=== PATIENT | female | born 1985 | race Caucasian/White ===

== ENCOUNTER 2016-08-26 13:04 | Emergency (ER) | payer BC | END 2016-08-26 14:20 | disposition home or self-care (01) | DX: N30.00 Acute cystitis without hematuria (principal); R20.2 Paresthesia of skin; F17.200 Nicotine dependence, unspecified, uncomplicated ==

== ENCOUNTER 2018-08-31 00:04 | Outpatient (CLI) | payer OTHER ==
--- NOTE | 2018-08-31 01:19 | Ultrasound Report ---
Reason: TEST POSITIVE Procedure Date: 08/31/2018 Accession Number: [id number] / [id number] Procedure: US - OB First Trimester CPT Code: FULL RESULT: EXAM: FIRST TRIMESTER OBSTETRIC ULTRASOUND (Less than 11 weeks) EXAM DATE: 08/31/2018 12:12 AM. CLINICAL HISTORY: TEST POSITIVE. LMP: 06/18/2018. COMPARISONS: None. TECHNIQUE: Transabdominal and transvaginal ultrasound examination with static image documentation. CLINICAL DATES: EGA 10 weeks 4 days with SANDER 03/25/2019 based on LMP. ASSESSMENT: Gestational Sac: Single intrauterine. Embryo: CRL (crown-rump length) 19 mm = 8 weeks 2 days. Cardiac activity: None present. Yolk sac: 4 mm. Amniotic fluid: Not accurately assessed at this gestational age. Early placenta: Not visible at this gestational age. Other: No perigestational fluid collection demonstrated. MATERNAL STRUCTURES: Uterus: Anteverted. Posterior subserosal leiomyoma measuring 1.5 cm.. Cervix: Closed. Right Ovary/Adnexa: The ovary measures 3.5 x 2.6 x 2.6 cm, volume 12 cc. 1.7 cm corpus luteum.. Left Ovary/Adnexa: The ovary measures 3.7 x 3.1 x 1.3 cm, volume 8 cc. Unremarkable. Free Fluid: None. Other: None. IMPRESSION: 1. Intrauterine gestational sac, with pole and yolk sac present, but no heart motion, compatible with intrauterine demise. RADIA The above critical result findings were discussed with Dr. Barnett by Dr. Wayne Peoples at 01:17 AM on 08/31/2018.
== END 2018-08-31 00:05 | disposition home or self-care (01) ==
LOC: DI 00:04
PROVIDERS: ATTEND Registered Nurse
DX: Z32.01 Encounter for pregnancy test, result positive (principal)
CPT/HCPCS: 76801; 76817

== ENCOUNTER 2019-08-07 14:30 | Outpatient (CLI) | payer BC ==
--- NOTE | 2019-08-07 19:03 | Ultrasound Report ---
Reason: POSITIVE TEST Procedure Date: 08/07/2019 Accession Number: [id number] / [id number] Procedure: US - OB First Trimester CPT Code: Final Report FULL RESULT: EXAM: FIRST TRIMESTER OBSTETRIC ULTRASOUND (Less than 11 weeks) EXAM DATE: 08/07/2019 03:32 PM. CLINICAL HISTORY: test positive. History of spontaneous x 3. COMPARISONS: OB FIRST TRIMESTER 08/31/2018 12:12 AM. TECHNIQUE: Transabdominal and transvaginal ultrasound examination with static image documentation. CLINICAL DATES: EGA 8 weeks 3 days with SANDER 03/15/2020 based on LMP, 06/09/2019. ASSESSMENT: Gestational Sac: Single intrauterine. Mean gestational sac diameter: 35 mm = 8 weeks 5 days, SANDER 03/13/2020. Embryo: CRL (crown-rump length) 20 mm = EGA 8 weeks 4 days, SANDER 03/14/2020. Cardiac activity: 167 beats per minute. Yolk sac: 4 mm. Amniotic fluid: Not accurately assessed at this gestational age. Early placenta: Not visible at this gestational age. Other: Inferior adrián-gestational bleed measuring 0.4 x 1.2 x 2.7 cm. MATERNAL STRUCTURES: Uterus: Anteverted. Posterior uterine subserosal fibroid measuring 2 x 1.4 x 1.8 cm. Cervix: Closed. Right Ovary/Adnexa: The ovary measures 4.4 x 2.7 x 3.7 cm, volume 23.4 cc. Unremarkable. Corpus luteum seen in the right ovary. Left Ovary/Adnexa: The ovary measures 3.1 x 1.2 x 1.7 cm, volume 3.4 cc. Unremarkable. Free Fluid: None. IMPRESSION: 1. Single viable intrauterine . Embryo: CRL (crown-rump length) 20 mm = EGA 8 weeks 4 days, SANDER 03/14/2020, concordant with dates. CLINICAL DATES: EGA 8 weeks 3 days with SANDER 03/15/2020 based on LMP, 06/09/2019. 3. Small adrián-gestational bleed. RADIA
== END 2019-08-07 14:31 | disposition home or self-care (01) ==
LOC: DI 14:30
PROVIDERS: ATTEND Obstetrics & Gynecology
DX: Z32.01 Encounter for pregnancy test, result positive (principal); O20.9 Hemorrhage in early pregnancy, unspecified; Z3A.08 8 weeks gestation of pregnancy
CPT/HCPCS: 76801; 76817

== ENCOUNTER 2019-08-19 07:00 | Outpatient (CLI) | payer BC ==
[2019-08-19 12:03] LABS: MUDS CUTOFF CONCENTRATIONS CUTOFF CONC BELOW:
[2019-08-19 12:12] LABS: BILIRUBIN,URINE NEGATIVE (NEGATIVE); GLUCOSE, URINE (UA) NEGATIVE (NEGATIVE); KETONES,URINE (UA) NEGATIVE (NEGATIVE); LEUKOCYTE ESTERASE, URINE TRACE (NEGATIVE); NITRITE,URINE NEGATIVE (NEGATIVE); OCCULT BLOOD,URINE TRACE-LYSE (NEGATIVE); PROTEIN,URINE NEGATIVE (NEGATIVE); UROBILINOGEN,URINE 0.2 (NORMAL) E.U./dL (NORMAL)
[2019-08-19 12:25] LABS: AMPHETAMINE SCREEN,URINE NEGATIVE (NEGATIVE); BENZODIAZEPINES SCREEN, URINE NEGATIVE (NEGATIVE); COCAINE SCREEN URINE NEGATIVE (NEGATIVE); METHADONE SCREEN, URINE NEGATIVE (NEGATIVE); METHAMPHETAMINES SCREEN, URINE NEGATIVE (NEGATIVE); OPIATE SCREEN, URINE NEGATIVE (NEGATIVE); OXYCODONE SCREEN, URINE NEGATIVE (NEGATIVE); PROPOXYPHENE SCREEN, URINE NEGATIVE (NEGATIVE); TRICYCLIC ANTIDEPRESSANT,URINE NEGATIVE (NEGATIVE)
[2019-08-19 12:26] LABS: CLARITY,URINE CLEAR (CLEAR)
[2019-08-19 12:33] LABS: BACTERIA,URINE Rare /HPF (None Seen); RBC,URINE 0-5 /HPF (0-5); SQUAMOUS EPITHELIAL CELL,UR RARE Squamous (<= Few)
== END 2019-08-19 23:59 | disposition home or self-care (01) ==
LOC: LAB.R 07:00
PROVIDERS: ATTEND Obstetrics & Gynecology
DX: Z34.90 Encounter for supervision of normal pregnancy, unspecified, unspecified trimester (principal)
CPT/HCPCS: 80306; 81001; 87086

== ENCOUNTER 2019-08-25 12:19 | Outpatient (CLI) | payer BC | END 2019-08-25 12:20 | disposition home or self-care (01) | LOC: LAB 12:19 | PROVIDERS: ATTEND Obstetrics & Gynecology | DX: Z31.5 Encounter for procreative genetic counseling (principal); O09.291 Supervision of pregnancy with other poor reproductive or obstetric history, first trimester; Z3A.00 Weeks of gestation of pregnancy not specified | CPT/HCPCS: 36415 ==

== ENCOUNTER 2019-09-09 08:00 | Outpatient (CLI) | payer BC ==
[2019-09-09 21:09] LABS: CANDIDA GROUP DNA NEGATIVE (NEGATIVE); CANDIDA KRUSEI DNA NEGATIVE (NEGATIVE); TRICHOMONAS VAGINALIS DNA NEGATIVE (NEGATIVE)
== END 2019-09-09 23:59 | disposition home or self-care (01) ==
LOC: LAB.R 08:00
PROVIDERS: ATTEND Advanced Practice Midwife
DX: O23.41 Unspecified infection of urinary tract in pregnancy, first trimester (principal); Z3A.00 Weeks of gestation of pregnancy not specified
CPT/HCPCS: 87086; 87661; 87801

== ENCOUNTER 2019-10-08 08:00 | Outpatient (CLI) | payer BC ==
[2019-10-08 18:12] LABS: CREATININE,URINE 43.1 mg/dL
[2019-10-08 18:34] LABS: CREATININE 24 HOUR,URINE 216 mg/24h (600-1800); TOTAL PROTEIN,URINE TIMED < 6 mg/dL; TOTAL VOLUME 24HRS,URINE 500 mL
== END 2019-10-08 23:59 | disposition home or self-care (01) ==
LOC: LAB.WCP 08:00
PROVIDERS: ATTEND Obstetrics & Gynecology
DX: O16.9 Unspecified maternal hypertension, unspecified trimester (principal)
CPT/HCPCS: 82570; 84156

== ENCOUNTER 2019-11-03 12:14 | Outpatient (CLI) | payer BC ==
--- NOTE | 2019-11-03 14:38 | Ultrasound Report ---
PROCEDURE: OB Detailed Eval INDICATIONS: SUPERVISION OF NORMAL OUTSIDE/PRIOR DATING DATA: Last menstrual period (LMP): 06/09/2019. LMP-based estimated date of delivery (SANDER): 03/15/2020. First dating scan (date and location): 08/07/2019. Estimated date of delivery (SANDER) from first dating scan: 03/15/2020. TECHNIQUE: Real-time scanning was performed of the fetus, with image documentation and biometric measurements. Endovaginal scanning: Not needed COMPARISON: None. FINDINGS: General: A single living intrauterine gestation is present. Presentation: Variable Placenta: Placental position is posterior fundal, without previa. Amniotic fluid index: 16.6 cm, normal for gestational age. heart rate: 147 beats per minute. Maternal cervical canal: 4.6 cm long; normal length is 2.5 cm or more. biometrics: Biparietal diameter: 5.2 cm, 21 weeks 4 days Head circumference: 19.0 cm, 21 weeks 3 days Abdominal circumference: 17.2 cm, 22 weeks 1 day Femur length: 3.6 cm, 21 weeks 2 days Estimated gestational age from initial scan: 21 weeks 0 days. Composite gestational age from present scan: 21 weeks 4 days Estimated weight and percentile: 4 47 g, 83rd percentile Measurement variability in biometric dating: +/- 10 days from 12-20 weeks gestation, +/- 2 weeks from 20-30 weeks gestation, +/- 3 weeks at 30 weeks gestation or later. Anatomic survey: Neuro: Ventricles are normal at less than 10 mm. Cisterna magna is normal at 3-11 mm. Cerebellum i s normal in size and morphology. Nuchal skin fold: Normal at less than 6 mm between 14 and 20 weeks gestational age. Face: Nose and lips, facial profile are normal. Spine: No evidence for spina bifida. Heart: 4-chambered heart is present, with normal ventricular outflow tracts. Diaphragm: Diaphragm is intact. Stomach: Left-sided stomach is present. Kidneys: No hydronephrosis. Normal is less than 5 mm in 2nd trimester, less than 7 mm in 3rd trimester. Cord: 3 vessel cord has orthotopic insertion. Bladder: Normal in size. Extremities: All 4 extremities are visualized. IMPRESSION: No anomaly seen, appropriate interval growth, delivery date is projected to be centered on 03/15. Reviewed by: Lit Weiss MD on 11/03/2019 2:37 PM PDT Approved by: Lit Weiss MD on 11/03/2019 2:37 PM PDT Station ID: [id number]
== END 2019-11-03 12:15 | disposition home or self-care (01) ==
LOC: DI 12:14
PROVIDERS: ATTEND Obstetrics & Gynecology
DX: Z34.90 Encounter for supervision of normal pregnancy, unspecified, unspecified trimester (principal)
CPT/HCPCS: 76811

== ENCOUNTER 2020-01-18 12:50 | Outpatient (CLI) | payer BC | END 2020-01-18 12:51 | disposition home or self-care (01) | LOC: LAB 12:50 | PROVIDERS: ATTEND Advanced Practice Midwife | DX: Z34.90 Encounter for supervision of normal pregnancy, unspecified, unspecified trimester (principal) | CPT/HCPCS: 36415; 82950 ==

== ENCOUNTER 2020-02-17 08:00 | Outpatient (CLI) | payer BC | END 2020-02-17 23:59 | disposition home or self-care (01) | LOC: LAB.R 08:00 | PROVIDERS: ATTEND Advanced Practice Midwife | DX: Z36.85 Encounter for antenatal screening for Streptococcus B (principal); Z34.90 Encounter for supervision of normal pregnancy, unspecified, unspecified trimester | CPT/HCPCS: 87797 ==

== ENCOUNTER 2020-02-23 14:56 | Outpatient (CLI) | payer BC ==
[2020-02-23] MEDS ORDERED: SODIUM CHLORIDE FLUSH 0.9% 10 ML SYRINGE IVP PRN (15:08)
[2020-02-23] MEDS ORDERED: TERBUTALINE 1 MG/ML VIAL SUBQ ONE (15:13)
[2020-02-23] MEDS ORDERED: ONDANSETRON 4 MG/2 ML VIAL IVP ONE (15:13)
[2020-02-23] MEDS ORDERED: fentaNYL 100 MCG/2 ML VIAL IVP ONE (15:13)
[2020-02-23] MEDS ORDERED: MINERAL OIL LIGHT 10 ML MC ONE (16:01)
[2020-02-23 16:18] VITALS: BP 130/85
--- NOTE | 2020-02-23 16:24 | PROVIDER PROGRESS NOTE ---
- HPI Chief Complaint: Other (Patient is a 34 yo at 37+0 wga with fetus in breech presentation here for external cephalic version. has been uncomplicated. Found to be in breech presentation at prior OB visit. Has had one . Desires attempt at ECV. No CTX/VB/LOF. Posterior placenta confirmed on prior US. Rh pos) Current : Vital Signs Temperature 98.8 F 02/23/20 16:17 Heart Rate 94 02/23/20 16:17 Respiratory Rate 18 02/23/20 16:17 Blood Pressure 130/85 H 02/23/20 16:17 Temperature 98.8 F 02/23/20 16:17 Heart Rate 94 02/23/20 16:17 Respiratory Rate 18 02/23/20 16:17 Blood Pressure 130/85 H 02/23/20 16:17 O2 Saturation - Exam GEN: NAD HEENT: NCAT CV: RRR RESP: nl effort ABD: ABD: gravid, soft and nontender EXT: WWP PSYCH: bright and reactive affect NEURO: A&O Bedside us shows breech position with head in RUQ PATRICIA 12.9 Breech presentation EFM 125 mod jack 15x15 accels no decel TOCO; Quiet Cat I tracing - Procedures OB Procedure Performed: External Cephalic Version NST Procedure: EFM 125 mod jack 15x15 accels no decels TOCO; Quiet Cat I tracing Service Date of procedure: 02/23/20 Procedure Details: R/B/A were reviewed. Written informed consent was obtained. Bedside us was performed and fetus was confirmed to be in breech presentation with head on materal right in the upper quadrant. PATRICIA 12.9. Cat I tracing. Patient received terbutaline 25 mcg SC x1 and fentanyl 50 mcg IV x1. Mineral oil was applied to the abdomen. breech was gently lifted out of the pelvis manually. Fetus was gently rotated head forward in the counterclockwise direction. Moved eaasily to a vertex presentation. heart tones reassuring throughout procedure. Bedside us confirmed vertex presentation. External monitoring continued for one hour post procedure and remained category I. Procedure was well tolerated and without complication. - Plan Plan: Patient was provided with an abdominal binder to stabilize position FU with routine OB care. Anticipate
== END 2020-02-23 18:00 | disposition home or self-care (01) ==
LOC: WFO 14:56 → FBP 14:58 → WFO 18:00
PROVIDERS: ATTEND Obstetrics & Gynecology
DX: O32.1XX0 Maternal care for breech presentation, not applicable or unspecified (principal); Z3A.37 37 weeks gestation of pregnancy
CPT/HCPCS: 59412; 96372; 96374; 96375

== ENCOUNTER 2020-03-04 12:18 | Outpatient (CLI) | payer BC ==
[2020-03-04 12:53] VITALS: BP 124/65
[2020-03-04] MEDS ORDERED: ONDANSETRON ODT 4 MG TABLET TL PRN (13:05)
[2020-03-04] MEDS ORDERED: ACETAMINOPHEN 500 MG TABLET PO PRN (13:06)
[2020-03-04] MEDS ORDERED: oxyCODONE 5 MG TABLET PO PRN (13:07)
[2020-03-04 13:27] LABS: BILIRUBIN,URINE NEGATIVE (NEGATIVE); GLUCOSE, URINE (UA) NEGATIVE (NEGATIVE); KETONES,URINE (UA) NEGATIVE (NEGATIVE); LEUKOCYTE ESTERASE, URINE TRACE (NEGATIVE); NITRITE,URINE NEGATIVE (NEGATIVE); OCCULT BLOOD,URINE NEGATIVE (NEGATIVE); PROTEIN,URINE NEGATIVE (NEGATIVE); UROBILINOGEN,URINE 0.2 (NORMAL) E.U./dL (NORMAL)
[2020-03-04 13:28] LABS: BASOPHILS % (AUTO) 0.2 %; EOSINOPHILS % (AUTO) 0.2 %; HGB - HEMOGLOBIN 10.7 g/dL (12.0-16.0); LYMPHOCYTES # (AUTO) 1.4 10^3/uL (1.5-3.5); LYMPHOCYTES % (AUTO) 16.6 %; MEAN CORPUSCULAR HEMOGLOBIN 27.9 pg (27.0-31.0); MEAN CORPUSCULAR HGB CONC 32.3 g/dL (32.0-36.0); MEAN CORPUSCULAR VOLUME 86.2 fL (81.0-99.0); MEAN PLATELET VOLUME 10.8 fL (7.9-10.8); MONOCYTES # (AUTO) 0.4 10^3/uL (0.0-1.0); MONOCYTES % (AUTO) 4.9 %; NEUTROPHILS # (AUTO) 6.6 10^3/uL (1.5-6.6); NEUTROPHILS % (AUTO) 77.4 %; PLT - PLATELET COUNT 150 10^3/uL (130-450); RED BLOOD COUNT 3.84 10^6/uL (4.20-5.40); RED CELL DISTRIBUTION WIDTH 13.7 % (12.0-15.0); WHITE BLOOD COUNT 8.5 x10^3/uL (4.8-10.8)
[2020-03-04 13:28] LABS: CLARITY,URINE CLEAR (CLEAR)
[2020-03-04 13:40] LABS: CREATININE,URINE 15.3 mg/dL
[2020-03-04 13:43] LABS: CREATININE 0.5 mg/dL (0.4-1.0)
[2020-03-04 13:43] LABS: TOTAL PROTEIN,URINE TIMED < 6 mg/dL
[2020-03-04 13:46] LABS: URIC ACID 5.1 mg/dL (2.6-7.2)
[2020-03-04 13:48] LABS: RBC,URINE None Seen /HPF (0-5)
[2020-03-04 13:49] LABS: BACTERIA,URINE Rare /HPF (None Seen); SQUAMOUS EPITHELIAL CELL,UR FEW Squamous (<= Few)
--- NOTE | 2020-03-04 14:29 | PROVIDER PROGRESS NOTE ---
- HPI Chief Complaint: Headache Current : Vital Signs Temperature 36.6 C 03/04/20 12:45 Heart Rate 82 03/04/20 12:45 Respiratory Rate 18 03/04/20 12:45 Blood Pressure 140/93 H 03/04/20 12:45 Temperature 36.6 C 03/04/20 12:45 Heart Rate 82 03/04/20 12:45 Respiratory Rate 18 03/04/20 12:45 Blood Pressure 124/65 03/04/20 12:53 O2 Saturation - Procedures OB Procedure Performed: NST NST Procedure: NST Procedure Start Time 15:10 Stop Time 15:55 Service Date of procedure: 03/04/20 - Plan Plan: Maria Elena is a 34yo @ 38.3wks gestation who presents today with her partner after phoning through the answering service with complaints of severe headache which she woke up with this morning. She states she took an Excedrin migraine, drank a cup of coffee and increased her fluid intake which are all things she does when she has a headache outside of , but these things did not even touch her headache this time. In addition she reports sensitivity to light and sound and nausea without vomiting. She states she has slightly blurred vision but this is also not a new symptom for her and reports overall poor vision. She denies vaginal bleeding or leakage of fluid. She reports intermittent low back pain but denies contractions. She states the back pain has been pretty consistent for the last several weeks and is not new. She reports +FM. She denies RUQ or epigastric pain. She denies edema. O: BP initially 140/93 with repeat 124/65. DTRs WNL - no clonus. HR 82; RR 18; T 36.6 Abdomen gravid, soft, nontender PIH labs: Hgb 10.7; Hct 33.1; PLT 150; AST 18; LDH 103; Uric acid 5.1 Urine protein - negative; Protein/creatinine ratio - not reportable (urine creatinine 15.3; urine total protein <6) FHR baseline 130, moderate variability, + accels, no decels No contractions appreciated via tocometry A: 34yo @ 38.3wks gestation by LMP c/w 8.3wk U/S Headache in PIH labs - WNL FHR Category I P: Administered 5mg Oxycodone and 1000mg Tylenol PO Zofran 4mg PO - nausea improved Ice pack to back of neck Pt advised to rest x 1 hour. Following 1 hour of rest pt headache and nausea both improved significantly. Reviewed and advised against excedrin migraine use. Advised Tylenol 1000mg PO q 8 hrs PRN headache. Advised increased fluid intake and rest. Pt released home with precautions. Pt verbalized understanding and agrees to above plan. She denies further questions or concerns at this time. NST performed 03/04/2020 NST read 03/04/2020 NST reactive; FHR baseline 130s, moderate variability, + accels, no decels FINAL DIAGNOSIS: Headache
== END 2020-03-04 15:30 | disposition home or self-care (01) ==
LOC: WFO 12:18 → FBP 12:19 → WFO 15:30
PROVIDERS: ATTEND Nurse Practitioner Obstetrics & Gynecology
DX: O99.891 Other specified diseases and conditions complicating pregnancy (principal); R51.9 Headache, unspecified; Z3A.38 38 weeks gestation of pregnancy
CPT/HCPCS: 36415; 81001; 82565; 82570; 83615; 84156; 84450; 84550; 85025; 87086; 99213; A9270; Q0162

== ENCOUNTER 2020-03-08 20:54 | Outpatient (CLI) | payer BC ==
[2020-03-08] MEDS ORDERED: MORPHINE 10 MG/ML VIAL IM STA (21:39)
[2020-03-08] MEDS ORDERED: PROMETHAZINE 25 MG/1 ML VIAL IM STA (21:40)
[2020-03-08 22:22] LABS: RUPTURE OF MEMBRANES PLUS NEGATIVE (NEGATIVE)
[2020-03-09 00:13] VITALS: BP 138/82
--- NOTE | 2020-04-17 07:12 | PROVIDER PROGRESS NOTE ---
- HPI Chief Complaint: Labor Check Current : Current EDU 03/15/20 Gestation 39 Weeks and 0 Days 5 Para 1 Vital Signs Temperature 37.3 C 03/08/20 21:12 Heart Rate 75 03/08/20 21:12 Respiratory Rate 16 03/08/20 21:12 Blood Pressure 138/82 H 03/08/20 21:12 O2 Saturation 98 03/08/20 21:12 Temperature 37.3 C 03/08/20 21:12 Heart Rate 75 03/08/20 21:12 Respiratory Rate 16 03/08/20 21:12 Blood Pressure 138/82 H 03/08/20 21:12 O2 Saturation 98 03/08/20 21:12 - Procedures NST Procedure: NST Procedure Start Time 12:30 Stop Time 13:30 - Plan Plan: S: Maria Elena presents for a term labor check O: FHTs per NST at 39.0wks gestation A: at 39.0wks not in labor, membranes intact FHTs reassuring P: Send home with labor precautions Continue routine care
== END 2020-03-08 22:52 | disposition home or self-care (01) ==
LOC: WFO 20:54 → FBP 20:56 → WFO 22:52
PROVIDERS: ATTEND Advanced Practice Midwife
DX: O47.1 False labor at or after 37 completed weeks of gestation (principal); Z3A.39 39 weeks gestation of pregnancy
CPT/HCPCS: 84112; 96372; 99213

== ENCOUNTER 2020-03-17 17:04 | Inpatient (IN) | payer BC ==
[2020-03-17] MEDS ORDERED: OXYTOCIN 10 UNIT/ML VIAL IM PRN (18:04)
[2020-03-17] MEDS ORDERED: ACETAMINOPHEN 325 MG TABLET PO PRN (18:04)
[2020-03-17] MEDS ORDERED: SODIUM CHLORIDE FLUSH 0.9% 10 ML SYRINGE IVP PRN (18:04)
[2020-03-17] MEDS ORDERED: CARBOPROST TROMETHAMINE 250 MCG/ML AMP IM PRN (18:04)
[2020-03-17] MEDS ORDERED: miSOPROStoL 200 MCG TABLET BC PRN (18:04)
[2020-03-17] MEDS ORDERED: TRANEXAMIC ACID 1,000 MG in SODIUM CHLORIDE 0.9% 100ML 100 ML IV PRN (18:04)
[2020-03-17] MEDS ORDERED: OXYTOCIN/SODIUM CHLORIDE 500 ML IV PRN (18:04)
[2020-03-17] MEDS ORDERED: LIDOCAINE-MPF 1% 30 ML VIAL ID PRN (18:04)
[2020-03-17] MEDS ORDERED: METHYLERGONOVINE 0.2 MG/ML VIAL IM PRN (18:04)
[2020-03-17] MEDS ORDERED: ZOLPIDEM 5 MG TABLET PO PRN (18:06)
[2020-03-17] MEDS: miSOPROStoL 100 MCG TABLET BC SCH ×2 (18:45→22:48)
[2020-03-17 18:53] LABS: BASOPHILS % (AUTO) 0.2 %; EOSINOPHILS % (AUTO) 0.1 %; HGB - HEMOGLOBIN 11.8 g/dL (12.0-16.0); LYMPHOCYTES # (AUTO) 1.7 10^3/uL (1.5-3.5); LYMPHOCYTES % (AUTO) 16.4 %; MEAN CORPUSCULAR HEMOGLOBIN 27.3 pg (27.0-31.0); MEAN CORPUSCULAR HGB CONC 32.5 g/dL (32.0-36.0); MEAN CORPUSCULAR VOLUME 83.8 fL (81.0-99.0); MEAN PLATELET VOLUME 11.8 fL (7.9-10.8); MONOCYTES # (AUTO) 0.5 10^3/uL (0.0-1.0); MONOCYTES % (AUTO) 4.9 %; NEUTROPHILS % (AUTO) 77.8 %; PLT - PLATELET COUNT 148 10^3/uL (130-450); RED BLOOD COUNT 4.33 10^6/uL (4.20-5.40); WHITE BLOOD COUNT 10.2 x10^3/uL (4.8-10.8)
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
[2020-03-18] MEDS ORDERED: MORPHINE 10 MG/ML VIAL IM STA (00:11)
[2020-03-18] MEDS: SODIUM CHLORIDE FLUSH 0.9% 10 ML SYRINGE IVP SCH (00:28)
[2020-03-18] MEDS: ONDANSETRON 4 MG/2 ML VIAL IVP PRN ×2 (00:28→07:26)
--- NOTE | 2020-03-18 07:58 | PROVIDER PROGRESS NOTE ---
Labor Progress Note - Uterine Monitoring Uterine Monitoring Mode: positive: External toco Contraction Frequency (min/apart): 5-8 Contraction Intensity: positive: Mild Uterine Resting Tone: positive: Soft - Monitoring Monitor Mode: positive: External ultrasound Heart Rate Baseline: 120 Heart Rate Variability: positive: Moderate (6-25 bmp) Accelerations: positive: Absent Decelerations: positive: None Strip Review: positive: Category I - Vaginal Exam Dilation (in cm): 2 Effacement (%): 75 Station: -2 Cervical Position: Anterior - Labor Progress Note Labor Progress Note/Additional Text: S: Pt reports she was able to sleep after receiving morphine last night. When she woke up this morning she was experiencing increased pain with contractions and states the jacuzzi did help relieve some of her discomfort. She is feeling the contractions continue to increase in intensity and is feeling like she would desire an epidural relatively soon. Feeling much of the contractions in her lower back. In addition she is experiencing nausea without vomiting and requests medication for management. Reports losing her mucus plug early this morning. Mood is good. supportive at the bedside. She denies SAAB, visual disturbances, RUQ or epigastric pain. O: FHR baseline 120s, moderate variability, no accels at present, no decels SVE 2/75/-2, anterior, medium consistency. Vertex. Intact membranes. Burrows score -7: favorable BP 143/86, afebrile Pre-induction cervical ripening with misoprostol s/p 2 doses of 50mcg BC misoprosol A: 34yo @ 40.3wks gestation by LMP c/w 8wk U/S FHR Category I GBS neg P: Continuous monitoring Initiate pitocin for induction of labor with titration per protocol Encouraged hands and knees position x 30 minutes min to promote optimal positioning. Epidural per maternal request Reviewed plan of care with pt, partner, and labor RN at the bedside who verbalized understanding and agree with above plan. They deny further questions or concerns at this time.
[2020-03-18] MEDS ORDERED: OXYTOCIN/SODIUM CHLORIDE 500 ML IV SCH (08:00)
[2020-03-18] MEDS: LACTATED RINGERS 1,000 ML IV SCH ×2 (08:35→18:35)
[2020-03-18] MEDS: METOCLOPRAMIDE 10 MG/2 ML VIAL IVP PRN ×2 (09:20→18:57)
[2020-03-18] MEDS ORDERED: ROPIVACAINE 0.2% 200 MG/100 ML BAG EP ONE (09:47)
--- NOTE | 2020-03-18 10:47 | PROVIDER PROGRESS NOTE ---
Labor Progress Note - Uterine Monitoring Uterine Monitoring Mode: positive: External toco Contraction Frequency (min/apart): 3-4 Contraction Intensity: positive: Moderate Uterine Resting Tone: positive: Soft - Monitoring Monitor Mode: positive: External ultrasound Heart Rate Baseline: 130 Heart Rate Variability: positive: Moderate (6-25 bmp) Accelerations: positive: Present, 15x15 Decelerations: positive: None Strip Review: positive: Category I - Labor Progress Note Labor Progress Note/Additional Text: S: Pt comfortable with epidural. Currently sleeping in bed. She denies SAAB, visual disturbances, RUQ or epigastric pain. supportive at the bedside. O: BP elevated 121-144/73-90 FHR baseline 130, moderate variability, + accels, no decels Contractions palpate moderate every 3-4 minutes with soft resting tone Heart RRR w/o M/G/R, lungs CTAB. DTRs WNL, no clonus. Bilateral LE's trace edema A: 34yo @ 40.3wks gestation by LMP c/w 8.3wk U/S Induction of labor - early labor Elevated BP w/o diagnosis of gestational hypertension or preeclampsia at present time FHR Category I GBS neg P: PIH labs ordered. Continuous monitoring Encouraged rotation in bed on peanut ball. Repeat SVE in 3 hours or sooner PRN.
[2020-03-18] MEDS ORDERED: NALBUPHINE 10 MG/ML AMP IVP PRN (10:50)
[2020-03-18] MEDS ORDERED: METOCLOPRAMIDE 10 MG/2 ML VIAL IVP PRN (10:50)
[2020-03-18] MEDS ORDERED: NALOXONE 0.4 MG/ML VIAL IVP PRN (10:50)
[2020-03-18] MEDS ORDERED: ePHEDrine 50 MG/ML VIAL IVP PRN (10:50)
[2020-03-18] MEDS ORDERED: diphenhydrAMINE INJ 50 MG/ML VIAL IVP PRN (10:50)
[2020-03-18] MEDS ORDERED: ROPIVACAINE 0.2% 200 MG/100 ML BAG EP PRN (10:50)
[2020-03-18] MEDS ORDERED: ONDANSETRON 4 MG/2 ML VIAL IVP PRN (10:50)
--- NOTE | 2020-03-18 10:50 | ANESTHESIA ---
Pre-Anesthesia VS, & Labs - Diagnosis labor induction - Procedure labor epidural Vital Signs: Temp Pulse Resp BP Pulse Ox 36.8 C 64 18 126/71 100 03/17/20 19:00 03/17/20 19:00 03/17/20 19:00 03/17/20 19:00 03/17/20 19:00 Height: 5 ft 6 in Weight (kg): 97.976 kg Body Mass Index: 34.8 BMI Classification: Obese - NPO Other (clears from now until delivery) - Is Patient ?: Yes - Lab Results Current Lab Results: Laboratory Tests 03/17/20 18:22: Blood Type O POSITIVE, Antibody Screen NEGATIVE 03/17/20 18:22: WBC 10.2, RBC 4.33, Hgb 11.8 L, Hct 36.3 L, MCV 83.8, MCH 27.3, MCHC 32.5, RDW 14.0, Plt Count 148, MPV 11.8 H, Neut # (Auto) 8.0 H, Lymph # (Au to) 1.7, [place] # (Auto) 0.5, Eos # (Auto) 0.0, Baso # (Auto) 0.0, Absolute Nucleated RBC 0.00, Nucleated RBC % 0.0 Fish Bones: 03/17/20 18:22 Home Medications and Allergies Active Medications Acetaminophen (Tylenol) 650 mg PO Q6H PRN PRN Reason: Pain or Fever Last Admin: 03/17/20 23:00 Dose: 650 mg Documented by: Carboprost Tromethamine (Hemabate) 250 mcg IM Q15M PRN PRN Reason: Step 4: Hemorrhage protocol Stop: 03/22/20 18:05 Oxytocin/Sodium Chloride (Pitocin/Sodium Chloride) 500 mls @ 999 mls/hr IV PRN PRN; Protocol PRN Reason: POST- HEMORR PREVENTION Stop: 03/22/20 18:05 Tranexamic Acid 1,000 mg/ (Sodium Chloride) 110 mls @ 660 mls/hr IV .ONCE PRN PRN Reason: EBL >1200mL and within 3hr Stop: 03/22/20 18:05 Lactated Ringer's (Lr) 1,000 mls @ 100 mls/hr IV .Q10H FERNANDO Last Admin: 03/18/20 08:35 Dose: 100 mls/hr Documented by: Oxytocin/Sodium Chloride (Pitocin/Sodium Chloride) 500 mls @ 1 mls/hr IV TITR FERNANDO; Protocol Last Titration: 03/18/20 10:35 Dose: 4 milliunit/min, 4 mls/hr Documented by: Lidocaine HCl (Xylocaine-Mpf 1% Vial) 30 ml ID .ONCE PRN PRN Reason: PERINEAL REPAIR Stop: 03/22/20 18:05 Methylergonovine Maleate (Methergine Inj) 0.2 mg IM .ONCE PRN PRN Reason: Step 2: Hemorrhage protocol Stop: 03/22/20 18:05 Metoclopramide HCl (Reglan Inj) 5 mg IVP Q6HR PRN PRN Reason: Nausea / Vomiting Last Admin: 03/18/20 09:20 Dose: 5 mg Documented by: Misoprostol (Cytotec) 800 mcg BC .ONCE PRN PRN Reason: Step 3: Hemorrhage protocol Stop: 03/22/20 18:05 Ondansetron HCl (Zofran Inj) 4 mg IVP Q4HR PRN PRN Reason: Nausea / Vomiting Last Admin: 03/18/20 07:26 Dose: 4 mg Documented by: Oxytocin (Pitocin) 10 unit IM .ONCE PRN PRN Reason: Step one: If no IV access Stop: 03/22/20 18:05 Sodium Chloride (Normal Saline Flush 0.9%) 10 ml IVP 0100,0900,1700 [facility] Last Admin: 03/18/20 00:28 Dose: 10 ml Documented by: Sodium Chloride (Normal Saline Flush 0.9%) 10 ml IVP PRN PRN PRN Reason: NEEDED PER PROVIDER ORDERS Allergies/Adverse Reactions: Allergies Allergy/AdvReac Type Severity Reaction Status Date / Time ciprofloxacin AdvReac Hives Verified 12/13/14 17:36 twin AdvReac Unknown Verified 12/13/14 17:36 Sulfa (Sulfonamide AdvReac Hives Verified 12/13/14 17:36 Antibiotics) Anes History & Medical History - Anesthetic History Anesthesia Complications: reports: No previous complications - Medical History Cardiovascular: reports: None Pulmonary: reports: None Gastrointestinal: reports: None Smoking Status: Current every day smoker History of Cancer?: No Exam General: Alert, Oriented x3 Dental: WNL Neck Mobility: Normal Respiratory: Lungs clear Cardiovascular: Regular rate Plan Anesthesia Type: Epidural Consent for Procedure(s) Verified and Reviewed: Yes Code Status: Attempt Resuscitation ASA classification: 2-Mild systemic disease Is this case an emergency?: No
[2020-03-18 11:01] LABS: BASOPHILS % (AUTO) 0.2 %; HGB - HEMOGLOBIN 11.5 g/dL (12.0-16.0); LYMPHOCYTES # (AUTO) 0.7 10^3/uL (1.5-3.5); LYMPHOCYTES % (AUTO) 5.7 %; MEAN CORPUSCULAR HEMOGLOBIN 27.5 pg (27.0-31.0); MEAN CORPUSCULAR HGB CONC 32.9 g/dL (32.0-36.0); MEAN CORPUSCULAR VOLUME 83.7 fL (81.0-99.0); MEAN PLATELET VOLUME 11.1 fL (7.9-10.8); MONOCYTES # (AUTO) 0.3 10^3/uL (0.0-1.0); MONOCYTES % (AUTO) 2.5 %; PLT - PLATELET COUNT 144 10^3/uL (130-450); RED BLOOD COUNT 4.18 10^6/uL (4.20-5.40); RED CELL DISTRIBUTION WIDTH 14.1 % (12.0-15.0); WHITE BLOOD COUNT 12.1 x10^3/uL (4.8-10.8)
[2020-03-18 11:09] LABS: URIC ACID 5.6 mg/dL (2.6-7.2)
[2020-03-18 11:49] LABS: PROTEIN/CREATININE RATIO,URINE 0.2 (<=0.2)
--- NOTE | 2020-03-18 12:41 | PROVIDER PROGRESS NOTE ---
Labor Progress Note - Uterine Monitoring Uterine Monitoring Mode: positive: External toco Contraction Frequency (min/apart): 2-4 Contraction Intensity: positive: Moderate Uterine Resting Tone: positive: Soft - Monitoring Monitor Mode: positive: External ultrasound Heart Rate Baseline: 130 Heart Rate Variability: positive: Moderate (6-25 bmp) Accelerations: positive: Present, 15x15 Decelerations: positive: None Strip Review: positive: Category I - Vaginal Exam Dilation (in cm): 4 Effacement (%): 75 Station: -2 Cervical Position: Anterior - Labor Progress Note Labor Progress Note/Additional Text: S: Feeling comfortable in bed with epidural. States she does feel some discomfort with contractions but has not pushed her TOUCH UP EDGER button. Continues to deny headache, visual disturbances, RUQ or epigastric pain. Was able to get a little nap in. Feeling good overall. sleeping at the bedside. O: BP 116/86 (improved), HR 71 PIH labs WNL: Hgb 11.5 Hct 35.0 PLT 144 Protein/Cr ratio 0.2 AST 20 LDH 112 Uric acid 5.6 FHR baseline 130s, moderate variability, + accels, no decels Contractions palpate moderate every 2-4 minutes with soft resting tone SVE 4/75/-2, anterior, medium consistency. Vertex. Pitocin IOL currently at 7mU/mL A: 34yo @ 40.3wks gestation Early labor FHR Category I GBS neg Normotensive P: Continuous monitoring Rotate in bed on peanut ball - discussed with RN at bedside Continue pitocin IOL with titration per protocol Repeat SVE in 5 hours or sooner PRN Pt and labor RN at the bedside verbalized understanding and agree to above plan. They deny further questions or concerns at this time.
--- NOTE | 2020-03-18 18:33 | PROVIDER PROGRESS NOTE ---
Labor Progress Note - Uterine Monitoring Uterine Monitoring Mode: positive: External toco Contraction Frequency (min/apart): 2-3 Contraction Intensity: positive: Moderate Uterine Resting Tone: positive: Soft - Monitoring Monitor Mode: positive: External ultrasound Heart Rate Baseline: 140 Heart Rate Variability: positive: Moderate (6-25 bmp) Accelerations: positive: Present, 15x15 Decelerations: positive: None Strip Review: positive: Category I - Vaginal Exam Dilation (in cm): 5 Effacement (%): 75 Station: -2 Cervical Position: Midposition - Labor Progress Note Labor Progress Note/Additional Text: S: Feeling uncomfortable with epidural in a right lateral tilt. She states the p ain is radiating down her thighs and she is feeling it in both her lower back and her lower abdomen. She is wincing in pain with every contraction. supportive at the bedside. O: FHR baseline 140s, moderate variability, + accels, no decels Contractions palpate moderate every 2-3 minutes with soft resting tone SVE 5/75/-2, midposition, medium consistency. Vertex. AROM @ 1808 small amount of clear fluid A: 34yo @ 40.3wks gestation Early labor- induction of labor FHR Category I GBS negative P: Anesthesia notified to present to assess pt pain status. Advised pt to continue using her DISCHARGE COORDINATOR. Discussed controlled breathing and relaxation techniques to cope with pain. Continuous monitoring Continue pitocin titration per protocol Encouraged continued rotation on peanut ball when comfortable Repeat SVE in 4 hours or sooner PRN. Anticipate .
[2020-03-18] MEDS ORDERED: BUPIVACAINE 0.5% PF 10 ML VIAL ONE (18:36)
[2020-03-18] MEDS ORDERED: fentaNYL 100 MCG/2 ML VIAL ONE (18:36)
[2020-03-18] MEDS ORDERED: HYDROCORTISONE 1% CREAM 28 GM TUBE PR PRN (22:26)
[2020-03-18] MEDS ORDERED: WITCH HAZEL/GLYCERIN 1 PAD TOP PRN (22:26)
--- NOTE | 2020-03-18 22:52 | DELIVERY NOTE ---
Delivery Note - Labor Labor: positive: Augmented by ARM, Induced by oxytocin - Delivery Method Infant Delivery Method: positive: Spontaneous vaginal delivery - Cervical Ripening Method Cervical Ripening Method: positive: Misoprostil - Presentation Presentation: positive: Vertex, MARCIA - left occiput anterior - Nuchal Cord Nuchal Cord: positive: Present, Reduced - Amniotic Fluid Description Amniotic Fluid Description: positive: Clear - Episiotomy Type Episiotomy Type: positive: None - Laceration Laceration: positive: None - Delivery Outcome Delivery Outcome: positive: Livebirth - [place]: positive: Placed in direct skin contact with mother, Stimulated, Warmed, [place] used, Warmer used sex: positive: Male - Cord Cord: positive: 3 vessels - Placenta Placenta: positive: Intact, Spontaneous - Estimated Blood Loss Estimated Blood Loss (in cc): 100 - Post Delivery Events Post Delivery Events: positive: No post delivery events - Delivery Comments (Free Text/Narrative) Delivery Comments (Free Text/Narrative): Labor: This 34yo @ 40.3wks gestation by LMP c/w 8.3wk U/S presented to [facility] on 03/17/2020 @ approximately 1700 for elective induction of labor. She received 2 total doses of 50mcg BC misoprostol for pre-induction cervical ripening. Pitocin initiated with titration per protocol for a maximum infusion rate of 10mU/mL. Epidural placed per maternal request. AROM occurred at 1808 and was noted to be a small amount of clear fluid. FHR pattern demonstrated a Category I pattern throughout labor with intermittent periods of Category II in second stage - overall reassuring. Normal labor course. Pt progressed to right anterior lip, 100% effaced at +1 station with significant pelvic and rectal pressure and urge to push spontaneously at 2135. Pt progressed to c/c/+1 at 2140. : Normal of viable male infant on 03/18/2020 @ 2201 in MARCIA position with left compound hand. Nuchal cord x 1 easily reduced. The was stimulated and dried with poor tone and color and little respiratory effort. The umbilical cord was doubly clamped by CNM and cut by FOB. Infant moved to warmer. Respiratory therapy notified and requested to present for assistance. Apgars were 3/7/9 at 1 min, 5 min, and 10 min respectively. Umbilical cord segment cut and sent for cord gases. Cord blood was then obtained. 3VC. Pitocin administered via IV for hemostasis. Fundal massage and gentle cord traction applied for active management of the third stage. Placenta delivered spontaneously and intant @ 2212. EBL 100mL. Fourth stage: Uterine fundus firm and there is no excessive bleeding. The perineum, vagina, and cervix were inspected and found to be intact. initiated. Family bonding well. Both mother and baby were left in stable condition.
[2020-03-18] MEDS: IBUPROFEN 800 MG TABLET PO SCH (23:32)
[2020-03-18] MEDS: ACETAMINOPHEN 500 MG TABLET PO PRN (23:33)
[2020-03-19] MEDS: SODIUM CHLORIDE FLUSH 0.9% 10 ML SYRINGE IVP SCH (02:00)
[2020-03-19] MEDS: IBUPROFEN 800 MG TABLET PO SCH ×5 (05:30→19:51)
[2020-03-19] MEDS: ACETAMINOPHEN 500 MG TABLET PO PRN ×2 (07:19→15:31)
[2020-03-19] MEDS ORDERED: MEASLES,MUMPS & RUBELLA VACC 0.5 ML VIAL SUBQ ONE (08:00)
--- NOTE | 2020-03-19 08:40 | PROVIDER PROGRESS NOTE ---
Subjective - Subjective Subjective: S: Bonding well with baby. with some difficulty getting baby to latch. She struggled with her first baby and tried for 2 weeks before switching to formula. She had a difficult time with depression and anxiety and she feels it was greatly heightened by her struggle with and had a very horrible experience with a art sales consultant previously. She is motivated to breastfeed and has pumped for stimulation but she states she is not putting so much pressure on herself this time. She states she is very tired and had difficulty sleeping here. She states she has a strong desire to go home at 24 hours. I reviewed that the injury prevention coordinator will likely desire to keep baby over night for discharge home tomorrow morning secondary to his somewhat diffi cult transition immediately ('s 3). She states they will want to just take the baby and leave and will plan to sign the baby out AMA if not discharge home at 24 hours. I advised her to speak with the injury prevention coordinator as she should be fully informed about the implications for her . Pt verbalized understanding. She states her bleeding is decreased and is light. Her pain is moderately controlled with oral medications. She has hydrocortisone cream and witch opal on her hemorrhoid which she states does give a little relief. She states when she is sitting still she feels just fine but when she moves the pain is more significant. She has been taking ibuprofen and tylenol as ordered. She denies SAAB, visual disturbances, RUQ or epigastric pain. O: BP 142/83, HR 64, RR 20, T 36.6 Heart RRR w/o M/G/R, lungs CTAB, abdomen soft and nontender with fundus firm at U. Perineum intact. Light lochia rubra. Bilateral LE's trace edema. A: 34yo PPD#1 s/p TSVD of viable male Perineum intact P: Will discharge home at 24hr pp - hold discharge if baby not discharged. Reviewed self care and warning s/sx. Advised continuation of PNV while . Advised continuation of 1000mg Tylenol q 8 hrs PRN pain and 800mg Ibuprofen q 8 hrs PRN pain OTC. F/u in 1 week for routine pp visit or sooner PRN. Pt verbalized understanding and agrees to above plan. She denies further questions or concerns at this time. Objective - Vital Signs/Intake & Output Vital Signs: Vital Signs x48h Temp Pulse Resp BP Pulse Ox 03/19/20 08:07 36.6 C 64 20 142/83 H 98 03/19/20 04:10 37.0 C 54 L 18 141/87 H 98 03/19/20 02:05 36.7 C 55 L 16 116/69 95 Intake & Output: Intake & Output 03/16/20 03/17/20 03/18/20 03/19/20 23:59 23:59 23:59 23:59 Intake Total 250 1080.584 860 Output Total 1100 850 Balance 250 -19.416 10 - Lab Results Fish Bones: 03/18/20 10:55 Other Labs: Lab Results x24hrs 03/18/20 03/18/20 03/18/20 Range/Units 10:55 10:55 10:55 WBC 12.1 H (4.8-10.8) x10^3/uL RBC 4.18 L (4.20-5.40) 10^6/uL Hgb 11.5 L (12.0-16.0) g/dL Hct 35.0 L (37.0-47.0) % MCV 83.7 (81.0-99.0) fL MCH 27.5 (27.0-31.0) pg MCHC 32.9 (32.0-36.0) g/dL RDW 14.1 (12.0-15.0) % Plt Count 144 (130-450) 10^3/uL MPV 11.1 H (7.9-10.8) fL Neut # (Auto) 11.0 H (1.5-6.6) 10^3/uL Lymph # (Auto) 0.7 L (1.5-3.5) 10^3/uL Mcdonald # (Auto) 0.3 (0.0-1.0) 10^3/uL Eos # (Auto) 0.0 (0.0-0.7) 10^3/uL Baso # (Auto) 0.0 (0.0-0.1) 10^3/uL Absolute Nucleated RBC 0.00 x10^3/uL Nucleated RBC % 0.0 /100WBC Uric Acid 5.6 (2.6-7.2) mg/dL AST 20 (10-42) IU/L Lactate Dehydrogenase 112 (91-225) IU/L Urine Creatinine mg/dL Ur Total Protein Timed mg/dL Protein/Creatinin Ratio (<=0.2) 03/18/20 Range/Units 10:20 WBC (4.8-10.8) x10^3/uL RBC (4.20-5.40) 10^6/uL Hgb (12.0-16.0) g/dL Hct (37.0-47.0) % MCV (81.0-99.0) fL MCH (27.0-31.0) pg MCHC (32.0-36.0) g/dL RDW (12.0-15.0) % Plt Count (130-450) 10^3/uL MPV (7.9-10.8) fL Neut # (Auto) (1.5-6.6) 10^3/uL Lymph # (Auto) (1.5-3.5) 10^3/uL Mcdonald # (Auto) (0.0-1.0) 10^3/uL Eos # (Auto) (0.0-0.7) 10^3/uL Baso # (Auto) (0.0-0.1) 10^3/uL Absolute Nucleated RBC x10^3/uL Nucleated RBC % /100WBC Uric Acid (2.6-7.2) mg/dL AST (10-42) IU/L Lactate Dehydrogenase (91-225) IU/L Urine Creatinine 371.0 mg/dL Ur Total Protein Timed 64 mg/dL Protein/Creatinin Ratio 0.2 (<=0.2)
--- NOTE | 2020-03-19 09:27 | Discharge Plan ---
Discharge Plan Problem Reviewed?: Yes Disposition: Home, Self Care Condition: Good Diet: Regular Activity Restrictions: No Restrictions Shower Restrictions: No Driving Restrictions: No Weight Bearing: Full Weight No Smoking: If you smoke, Please STOP! Call for help. Follow-up with: Sandra Corona CNM, ARNP [Provider Admit Priv/Credential] -
[2020-03-19] MEDS ORDERED: DOCUSATE SODIUM 250 MG CAPSULE PO SCH (14:24)
--- NOTE | 2020-03-19 16:09 | DISCHARGE SUMMARY ---
Physician: AUTUMN Meza DATE OF ADMISSION: 03/18/2020 DATE OF DISCHARGE: 03/19/2020 DIAGNOSES ON ADMISSION 1. A 34-year-old G5, P-1-0-3-1 at 42 and 2 weeks' gestation by LMP consistent with 8.3 week ultrasou nd. 2. Induction of labor, which was elective. 3. Thrombosed hemorrhoid. 4. Group B streptococcus negative. DIAGNOSES ON DISCHARGE 1. A 34-year-old G5, P2-0-3-2, status post spontaneous vaginal delivery on 03/18/2020. 2. Rubella nonimmune. 3. Normal recovery. HISTORY OF PRESENT ILLNESS: She is a patient of [facility], who presented on 2019 for elective induction of labor. She received 2 total doses of 50 mcg buccal mucosa misoprostol for preinduction cervical ripening. Pitocin initiated with titration per protocol for a maximum inf usion rate of 10 milliunits per mL. Epidural placed per maternal request. She was augmented with art ificial rupture of membranes. She progressed to spontaneously deliver a viable male on 2019 at 2201. Apgars were 3, 7 and 9 at one, five and 10 minutes respectively. Estimated blood loss was 100 mL. The perineum, vagina and cervix were inspected and found to be intact. She has been doing well in her course. She is ambulating and tolerating a regular diet. She is urinating without difficulty and her lochia is normal. Her pain is well controlled with oral medications. She will receive an MMR vaccination prior to discharge. She will be discharged home to day on day #1 at 24 hours with instructions to continue her vitamin, w hile . In addition, she has been given instructions to continue ibuprofen and Tylenol o [id number] as needed for pain management. She intends to follow with myself at [facility] in 1 week for routine visit or sooner if needed. She has been given precautio ns to call if she has any worsening fevers, chills, abdominal pain, increased bleeding or foul-smelli ng vaginal lochia. TD: 03/19/2020 09:33
[2020-03-19 21:18] VITALS: BP 132/85
--- NOTE | 2020-03-20 02:14 | Labor Flowsheet ---
Labor Flowsheet Datetime Report Generated by CPN: 03/20/2020 02:13 Datetime: 03/19/2020 19:58 VITAL SIGNS NBP Sys/Imelda/Mean (mmHg): 132 : 85 : 95 Pulse: 69 Datetime: 03/19/2020 11:54 SpO2 (%): 99 Datetime: 03/19/2020 02:05 Stage of : Recovery Respirations: 16 Temperature (C): 36.7 Temperature Route: Oral Datetime: 03/19/2020 01:04 PAIN Pain Scale: 3 Pain Presence: Intermittent Pain Type: Cramping; Dull Pain Location: Perineum Pain Goal: 3 Pain Relief Measures: Pain Medication Given; Comfort Measures Datetime: 03/18/2020 22:32 Membranes Ruptured Date/Time: 03/18/2020 18:08 Amniotic Fluid Color: Clear Datetime: 03/18/2020 22:00 LaborFlag: Labor Datetime: 03/18/2020 21:50 UTERINE ACTIVITY Monitor Mode: External Frequency (min): 2 Quality: Strong Duration (sec): 40 Pattern: Normal: <= 5 Contractions in 10 Minutes Resting Tone (Palpate): Relaxed ASSESSMENT A Monitor Mode: External US FHR Baseline Rate : 125 Variability: Moderate 6-25 bpm Accelerations: 15X15 Decelerations: Variable Category: Category II Datetime: 03/18/2020 21:40 Actions for Decelerations: Side to Side; Other Vibroacoustic Stim: A Chloe CNM present Datetime: 03/18/2020 21:23 Pitocin Checklist: At Least 1 Acceleration of 15 bpm x 15 Seconds in 30 Minutes or Adequate Variabi lity; Uterus Palpates Soft between Contractions FHR Baseline Changes: No Baseline Change Datetime: 03/18/2020 21:15 VAGINAL EXAM Dilatation (cm): 8.0 Effacement (%): 90 Station: -1 Exam by: Jhonatan RN Membrane Status: Ruptured Cervix, Position: Midposition Presentation 'A': Cephalic Lie 'A': Longitudinal Datetime: 03/18/2020 19:30 ANESTHESIA Anesthesia Plans: Epidural Anesthesia Level Check: T8- Ribs Datetime: 03/18/2020 18:56 Vital Sign Comments: appx 300ml emesis Nausea/Vomiting: Present Datetime: 03/18/2020 18:54 MEDICATIONS Pitocin (milliunits): Decreased to @ 8 Datetime: 03/18/2020 18:13 Comments: tele sensors replaced with wired sensors. Datetime: 03/18/2020 18:08 Membranes Rupture Method: Artificial Amniotic Fluid Amount: Small Datetime: 03/18/2020 17:59 Cervix, Consistency: Moderate Datetime: 03/18/2020 17:55 COMMUNICATION Communication: Call/Page Placed to Provider Provider Notified (Name): COMMERCIAL ACCOUNT MANAGER Aube Notification Reason: Other Communication Comments: Requested provider to come evaluate epidural, patient experiencing increasi ng pain. Datetime: 03/18/2020 16:36 Patient Position/Activity: Right Tilt Datetime: 03/18/2020 16:24 Patient Care Comments: Air in line alert on epidural pump. Pump stopped pending anesthesia provider eval. Datetime: 03/18/2020 15:46 Monitor Interventions for UA: Somis Adjusted Datetime: 03/18/2020 15:45 Contraction Comments: poor ctx tracing from [id number] Datetime: 03/18/2020 15:14 Monitor Interventions for FHR: Ultrasound Adjusted Datetime: 03/18/2020 12:30 Pain Assessment Comments: feeling pressure Datetime: 03/18/2020 11:13 I/O Interventions: Chavira Cath Inserted Datetime: 03/18/2020 10:08 Epidural Procedure Other: Pump Started Datetime: 03/18/2020 09:53 Epidural Procedure: Test Dose Datetime: 03/18/2020 09:41 PROCEDURE TIME OUT Procedure Verify: Correct Patient Position Epidural Positioning: Sitting Datetime: 03/18/2020 09:30 Anesthesia Comments: COMMERCIAL ACCOUNT MANAGER Aube @ bedside, pt consented. Datetime: 03/18/2020 09:20 Antiemetics/Antacids: Other Antiemetic/Antacid @ Reglan 5mg IV Datetime: 03/18/2020 03:03 Pain Coping: Sleeping Datetime: 03/18/2020 00:33 Analgesics/Sedatives: Morphine Sulfate (mg) @ 10 Datetime: 03/18/2020 00:11 Provider Reviewed Strip: Yes Datetime: 03/17/2020 23:30 PATIENT CARE Oxygen Method: Room Air Datetime: 03/17/2020 22:50 Cervical Ripening Agents: Cytotec @ Datetime: 03/17/2020 22:00 MATERNAL ASSESSMENT Level of Consciousness: Alert DTR's/Clonus: DTRs 2+; No Clonus Headache: Denies Breath Sounds, Left: Clear and Equal Breath Sounds, Right: Clear and Equal RUQ Epigastric Pain: Denies PRE-INDUCTION CHECKLIST Orders on Chart: Yes H Record Available: Yes Indication Charted: Yes Adequate Pelvis Charted: Yes EFW Documented: Yes Gestational Age Documented: Yes Consent Signed and on Chart: Yes Provider with C/S Priv Aware: Yes Status of Cervix Documented: Yes Presentation Documented: Yes 30min of Monitoring Prior: Yes 2 Accels of 15X15 Present: Yes No Late Decels Present: Yes Less than 2 Variable Decels: Yes
[2020-03-20] MEDS ORDERED: DOCUSATE SODIUM 250 MG CAPSULE PO SCH (09:00)
== END 2020-03-20 00:30 | disposition home or self-care (01) | DRG 806 ==
LOC: WFO 17:04 → FBP 17:05 → WFO 18:03 → FBP 18:04 → OBSVTOIN 03-18 08:00
PROVIDERS: ADMIT Nurse Practitioner Obstetrics & Gynecology; ATTEND Nurse Practitioner Obstetrics & Gynecology
PROC: 10E0XZZ Delivery of Products of Conception, External Approach (ICD-10-PCS; principal; 2020-03-18)
PROC: 10907ZC Drainage of Amniotic Fluid, Therapeutic from Products of Conception, Via Natural or Artificial Opening (ICD-10-PCS; 2020-03-18)
DX: O48.0 Post-term pregnancy (principal); O22.43 Hemorrhoids in pregnancy, third trimester; Z37.0 Single live birth; Z3A.40 40 weeks gestation of pregnancy; O99.334 Smoking (tobacco) complicating childbirth; O69.81X0 Labor and delivery complicated by cord around neck, without compression, not applicable or unspecified; O32.6XX0 Maternal care for compound presentation, not applicable or unspecified; O75.89 Other specified complications of labor and delivery; G47.00 Insomnia, unspecified; O99.344 Other mental disorders complicating childbirth; F43.10 Post-traumatic stress disorder, unspecified; O92.70 Unspecified disorders of lactation; Z79.82 Long term (current) use of aspirin; Z20.828 Contact with and (suspected) exposure to other viral communicable diseases
CPT/HCPCS: 36415; 82570; 83615; 84156; 84450; 84550; 85025; 86850; 86900; 86901; 87635; 96372; 96374; 96376; A9270; G0378; J2765; J7120